=== PATIENT | female | born 1970 | race Caucasian/White ===

== ENCOUNTER 2019-07-24 04:32 | Outpatient (RCR) | payer OTHER, SELFPAY ==
[2019-06-29 14:01] LABS: Abs Immature Grans 0.05 k/cumm (0.0-0.09); Absolute Basophil Count 0.05 k/cumm (0.0-0.2); Absolute Eosinophil Count 0.16 k/cumm (0.0-0.7); Absolute Lymphocyte Count 0.98 k/cumm (1.2-3.4); Absolute Monocyte Count 0.85 k/cumm (0.11-0.7); Absolute Neutrophil Count 6.44 k/cumm (1.2-6.7); Basophils % 0.6; Eosinophils % 1.9; HCT 33.8 % (36.0-46.0); HGB 11.6 g/dL (12.0-15.5); Immature Grans % 0.6 %; Lymphocytes % 11.5; Mean Corp. HGB Concentration 34.3 g/dL (32.0-36.0); Mean Corpuscular Hemoglobin 30.6 pg (27.0-33.0); Mean Corpuscular Volume 89.2 fL (80-95); Mean Platelet Volume 10.9 fL (8.0-11.0); Neutrophils % 75.4; Platelet Count 261 x1000/uL (130-400); RBC 3.79 m/cumm (4.00-5.20); RBC Distribution Width 12.3 % (11.7-14.6); White Blood Cell Count 8.53 k/cumm (4.4-10.8)
[2019-06-29 14:24] LABS: ALT 12 U/L (14-59); AST 11 U/L (15-37); Albumin 3.1 g/dL (3.4-5.0); Alkaline Phosphatase 71 U/L (46-116); Anion Gap 8.8 mmol/L (3-11); BUN 13 mg/dL (7-18); Bilirubin, Total 0.3 mg/dL (0.2-1.0); CO2 29.2 mmol/L (21.0-32.0); CREATININE 0.69 mg/dL (0.55-1.02); Calcium 8.5 mg/dL (8.5-10.1); Chloride 101 mmol/L (98-107); Ferritin 27 ng/mL (8-252); Glucose 93 mg/dL (74-106); Magnesium 1.8 mg/dL (1.8-2.4); Potassium 3.7 mmol/L (3.5-5.1); Sodium 139 mmol/L (136-145); Total Protein 6.6 g/dL (6.4-8.2)
[2019-06-29 14:31] LABS: Iron 49 ug/dL (50-170); Total Iron Binding Capacity 208 ug/dL (250-450); Transferrin Sat 24 % (15-50)
[2019-06-30 09:57] LABS: CEA <0.5 ng/mL (See Note)
[2019-07-13 10:01] LABS: Abs Immature Grans 0.01 k/cumm (0.0-0.09); Absolute Basophil Count 0.05 k/cumm (0.0-0.2); Absolute Eosinophil Count 0.13 k/cumm (0.0-0.7); Absolute Lymphocyte Count 0.55 k/cumm (1.2-3.4); Absolute Monocyte Count 1.03 k/cumm (0.11-0.7); Absolute Neutrophil Count 4.24 k/cumm (1.2-6.7); Basophils % 0.8; Eosinophils % 2.2; HCT 37.3 % (36.0-46.0); HGB 12.7 g/dL (12.0-15.5); Immature Grans % 0.2 %; Lymphocytes % 9.2; Mean Corpuscular Hemoglobin 30.2 pg (27.0-33.0); Mean Corpuscular Volume 88.6 fL (80-95); Mean Platelet Volume 10.3 fL (8.0-11.0); Monocytes % 17.1; Neutrophils % 70.5; Platelet Count 191 x1000/uL (130-400); RBC 4.21 m/cumm (4.00-5.20); White Blood Cell Count 6.01 k/cumm (4.4-10.8)
[2019-07-13 10:09] LABS: ALT 23 U/L (14-59); AST 17 U/L (15-37); Albumin 3.4 g/dL (3.4-5.0); Alkaline Phosphatase 62 U/L (46-116); Anion Gap 6.2 mmol/L (3-11); BUN 10 mg/dL (7-18); Bilirubin, Total 0.3 mg/dL (0.2-1.0); CO2 30.8 mmol/L (21.0-32.0); CREATININE 0.72 mg/dL (0.55-1.02); Calcium 8.6 mg/dL (8.5-10.1); Chloride 102 mmol/L (98-107); Glucose 74 mg/dL (74-106); Potassium 4.1 mmol/L (3.5-5.1); Sodium 139 mmol/L (136-145); Total Protein 6.9 g/dL (6.4-8.2)
[2019-07-14 10:26] LABS: CEA <0.5 ng/mL (See Note)
[2019-07-24 09:10] LABS: Abs Immature Grans 0.01 k/cumm (0.0-0.09); Absolute Basophil Count 0.03 k/cumm (0.0-0.2); Absolute Eosinophil Count 0.18 k/cumm (0.0-0.7); Absolute Lymphocyte Count 0.38 k/cumm (1.2-3.4); Absolute Monocyte Count 0.87 k/cumm (0.11-0.7); Absolute Neutrophil Count 3.84 k/cumm (1.2-6.7); Basophils % 0.6; Eosinophils % 3.4; HGB 12.5 g/dL (12.0-15.5); Immature Grans % 0.2 %; Lymphocytes % 7.2; Mean Corp. HGB Concentration 34.7 g/dL (32.0-36.0); Mean Corpuscular Hemoglobin 30.6 pg (27.0-33.0); Mean Corpuscular Volume 88.2 fL (80-95); Monocytes % 16.4; Neutrophils % 72.2; Platelet Count 165 x1000/uL (130-400); RBC 4.08 m/cumm (4.00-5.20); RBC Distribution Width 12.9 % (11.7-14.6); White Blood Cell Count 5.31 k/cumm (4.4-10.8)
[2019-07-24 09:21] LABS: ALT 29 U/L (14-59); AST 25 U/L (15-37); Albumin 3.3 g/dL (3.4-5.0); Alkaline Phosphatase 54 U/L (46-116); Anion Gap 5.1 mmol/L (3-11); BUN 12 mg/dL (7-18); Bilirubin, Total 0.3 mg/dL (0.2-1.0); CO2 29.9 mmol/L (21.0-32.0); CREATININE 0.83 mg/dL (0.55-1.02); Calcium 8.6 mg/dL (8.5-10.1); Chloride 104 mmol/L (98-107); Glucose 116 mg/dL (74-106); Potassium 3.6 mmol/L (3.5-5.1); Sodium 139 mmol/L (136-145); Total Protein 6.6 g/dL (6.4-8.2)
[2019-07-24] MEDS: Normal Saline Flush 10 ML SYR IVP (09:40)
== END 2019-07-25 23:59 | disposition home or self-care (01) ==
LOC: INF 04:32
PROVIDERS: Internal Medicine Medical Oncology; PCP Family Medicine; Visit Provider Internal Medicine Hematology & Oncology
DX: C15.5 Malignant neoplasm of lower third of esophagus (principal); Z45.2 Encounter for adjustment and management of vascular access device
CPT/HCPCS: 36569; 36592; 80053; 82378; 82728; 83540; 83550; 83735; 85025

== ENCOUNTER 2019-08-14 03:12 | Outpatient (RCR) | payer OTHER, SELFPAY | END 2019-08-25 23:59 | disposition home or self-care (01) | LOC: INF 03:12 | PROVIDERS: PCP Family Medicine; Visit Provider Internal Medicine Hematology & Oncology | DX: R69 Illness, unspecified (principal) ==

== ENCOUNTER 2023-01-02 11:07 | Outpatient (CLI) | payer MEDICARE, SELFPAY ==
--- NOTE | 2023-01-02 06:00 | DI.RAD_ITS ---
Exam(s) XR PAIN CLINIC THORACIC SP 2V EXAM: XR PAIN CLINIC THORACIC SP 2V CLINICAL HISTORY: Dx: Intercostal Neuralgia. TECHNIQUE: Fluoroscopy was provided for the referring physician for guidance with performing pain cl inic injection procedure. COMPARISON: No exams were available for comparison FINDINGS: Please see procedure note for details. Fluoro time: 71.6 seconds RADIATION DOSE DELIVERED: Ka,r=5.54 mGy
[2023-01-02 11:21] VITALS: BP 105/75; PULSE 89; RESP 20; TEMP 36.6; O2SAT 98
[2023-01-02] MEDS: methylPREDNISolone ACETATE 40 MG/ML VIAL IJ (11:45)
[2023-01-02] MEDS: Omnipaque 240 MG/ML 50 ML BTL IJ (11:45)
[2023-01-02] MEDS: Bupivacaine 0.5% Pres-Free 10 ML VIAL IJ (11:54)
[2023-01-02 12:01] VITALS: BP 95/71; PULSE 87; RESP 15; O2SAT 96
--- NOTE | 2023-01-03 16:28 | PDOC.PAIN_ITS ---
Date of service: 01/02/23 Time of Service: 12:00 Pain Managment Procedure Note Procedure Note Procedure Note: PROCEDURE NOTE RIGHT 6th INTERCOSTAL NERVE BLOCK Chief Complaint: Right upper back and chest pain. Date of Service: January 02, 2023 Patient: VICKI CHAPPELL Provider: Delmar Linda DO, MPH VICKI CHAPPELL has been [facility] for an intercostal nerve block. Pre-operative diagnosis: Intercostal neuralgia Post-operative diagnosis: Same Pre-Procedure Pain: VAS= 8/10 Comments: I previously evaluated the patient in our clinic and their symptoms remain the same as they were at that time. She had lung surgery and the surgeon entered between the 6th and 7th ribs on the right. She has a large and painful scar in this area. She did have a right 6th, 7th and 8th intercostal nerve blocks at in the past with [facility]. I did spend significant time determining the exact intercostal nerve that was likely irritated during her open chest surgery. This will likely be the right 6th intercostal nerve. VICKI was interviewed and the medical record reviewed. There were no medical, pharmacologic, radiographic or other structural contraindications to attempting a fluoroscopically-guided intercostal nerve block. The risks, benefits, and potential side effects were reviewed with the patient. Risks include, but are not limited to, pneumothorax, infection, bleeding, nerve injury, possible increase in symptoms over the ensuing 24 to 48 hours, paralysis, and . The patient appeared to understand, questions were answered to the patient?s satisfaction and the patient agreed to proceed. Once I obtained informed verbal consent, the printed consent form was signed by the patient and myself. A standard time-out procedure was performed. VICKI was placed in the prone position on the fluoroscopy table and automated blood pressure cuff, three lead EKG, and pulse oximeter were applied. The skin entry point for entering/approaching the area for the right 6th intercostal nerve block was marked. Following thorough chlorhexadine preparation of the skin and draping, 2 ml of 1% lidocaine was infiltrated into the skin over the entry point and subcutaneous tissues. Under fluoroscopic guidance, using a 1.5 25G skin needle was advanced to the 6th rib and walked inferiorly off the rib. The needle was advanced under the rib. Oblique and AP views were rechecked. Under AP and lateral views, 1 ml of Omnipaque-240 was injected while visualized with fluoroscopy. There was no evidence of intravascular or intrathecal uptake, the nerve sheath was delineated. Next 2 cc of 2% Lidocaine was injected, followed by 1 ml of preservative-free Depomedrol (40 mg/ml) was injected after negative aspiration. This was followed by 8 ml of preservative-free 0.5 % Bupivacaine. (49 mls of Omnipaque-240 was wasted) There was no unusual discomfort expressed by VICKI. The needle was withdrawn without difficulty. VICKI was observed and was without hemodynamic, neurologic, or allergic reactions.? Fluoroscopic images were digitally archived. Once I was sure that we had blocked the symptomatic intercostal nerve, the sterile field was taken down. VICKI's vital signs were stable throughout the procedure and were as recorded in the docflowsheet by the nursing staff.? If given, dosages of intravenous drugs for anxiolysis and analgesia were documented in MAR. Follow up plans and appointments were discussed with VICKI. Post procedure instruction was given as documented in nursing records and having met discharge criteria VICKI was [facility] the [facility]. COMMENTS: Post-procedure pain: VAS= 0/10. VICKI to contact [facility] as needed. If at least 50% improvement in pain and/or function for at least 3 months is achieved, this procedure can be repeated. I personally performed this entire procedure. DELMAR LINDA DO, MPH ABPMR-subspecialty board certification in Pain Medicine [facility]
== END 2023-01-02 11:08 | disposition home or self-care (01) ==
LOC: PC 11:07
PROVIDERS: PCP Family Medicine; Visit Provider Preventive Medicine Occupational Medicine
DX: R07.82 Intercostal pain; G58.0 Intercostal neuropathy
CPT/HCPCS: 64420; 64421; 72070; J1030; Q9967

== ENCOUNTER 2023-12-12 11:02 | Outpatient (CLI) | payer MEDICARE, SELFPAY ==
[2023-12-12 11:17] VITALS: BP 110/79; PULSE 98; RESP 20; TEMP 36.8; O2SAT 99
[2023-12-12 11:32] VITALS: PULSE 96; RESP 16; O2SAT 97
[2023-12-12 11:40] VITALS: PULSE 92; RESP 17; O2SAT 96
[2023-12-12 11:44] VITALS: BP 109/89; PULSE 90; PULSE 97; RESP 15; O2SAT 97
--- NOTE | 2023-12-12 11:44 | DI.RAD_ITS ---
Exam(s) XR PAIN CLINIC THORACIC SP 2V EXAM: XR PAIN CLINIC THORACIC SP 2V CLINICAL HISTORY: DX: Intercostal Neuralgia. TECHNIQUE: Fluoroscopy was provided for the referring physician for guidance with performing pain cl inic injection procedure. COMPARISON: No exams were available for comparison FINDINGS: Please see procedure note for details. Fluoro time: 35.8 seconds RADIATION DOSE DELIVERED: Ka,r=2.74 mGy
[2023-12-12] MEDS: Nerve Block Tray 1 EACH MC (11:51)
[2023-12-12] MEDS: Omnipaque 240 MG/ML 50 ML BTL IJ (11:51)
[2023-12-12] MEDS: methylPREDNISolone ACETATE 40 MG/ML VIAL IJ (11:52)
[2023-12-12] MEDS: Lidocaine 2% Pres-Free 5 ML VIAL IJ (11:52)
--- NOTE | 2023-12-12 11:52 | PDOC.PAIN_ITS ---
Date of service: 12/12/23 Time of Service: 11:52 Pain Managment Procedure Note Procedure Note Procedure Note: Procedure Note Right 6th Intercostal Nerve Block Date of Service: December 12, 2023 Patient:VICKI CHENG? Provider:? Delmar Linda DO, MPH VICKI has been referred to the [facility] for a right 6th Intercostal nerve block.? Pre-operative diagnosis: Intercostal neuralgia Post-operative diagnosis: Same Pre-procedure pain: VAS= 9/10 Comments: She has had this procedure in the past with excellent relief. VICKI was interviewed and the medical record was reviewed.? There were no medical, pharmacologic, radiographic or other structural contraindications to attempting fluoroscopically guided a right 6th intercostal nerve block.? Risks, potential side effects, indications, and potential benefits of the procedure were reviewed with VICKI.? Questions and concerns were addressed.? After it was clear that the patient was fully informed about the procedure, the printed consent form was signed by the patient and myself.? VICKI was placed in the prone position on the fluoroscopy table and automated blood pressure cuff as well as pulse oximeter was applied. A standard time-out procedure was performed. The skin entry point for entering over the right 6th rib approximately 5 cm lateral to midline was identified under fluoroscopy and marked.? The skin entry point was thoroughly cleaned with Chlorhexadine preparation and the skin was draped.? Next a mixture of 2 mls of 1% lidocaine was infiltrated into the area of the planned skin entry point and underlying subcutaneous tissues.? Next this needle was advanced under fluoroscopic guidance to the rib and then the needle was walked down and below the rib with much care.? Upon correct needle placement, there were no paresthesia or return of blood or CSF through the needle. Next 2 mls of preservative-free Omnipaque 240 was injected with clear neurogram spread in the A/P view. Next, 4 cc of 0.5% Bupivacaine followied by 1 cc of Depomedrol (40mg/cc) and then 2 cc of 1% Lidocaine were injected. No unusual discomfort was expressed by VICKI. The needle was withdrawn without difficulty. (48 mls of Omnipaque was wasted) VICKI was observed and was without hemodynamic, neurologic, or allergic reactions.? Fluoroscopic images were digitally archived. VICKI's vital signs were stable throughout the procedure and were as recorded in the doc flowsheet by the nursing staff.? If given, dosages of intravenous drugs for anxiolysis and analgesia were documented in MAR. Follow up plans and appointments were discussed with VICKI.? Post procedure instruction was given as documented in nursing documentation and having met discharge criteria, [facility]. ? COMMENTS: No apparent complications. Post-procedure pain: VAS= 0/10. VICKI to contact [facility] as needed. If at least 50% improvement in pain and/or function for at least 3 months is achieved, this procedure can be repeated. I personally completed the entire procedure. DELMAR LINDA DO, MPH ABPMR-subspecialty board certification in Pain Medicine [facility]
[2023-12-12] MEDS: Bupivacaine 0.5% Pres-Free 10 ML VIAL IJ (11:53)
== END 2023-12-12 11:03 | disposition home or self-care (01) ==
LOC: PC 11:03
PROVIDERS: PCP Physician Assistant Medical; Visit Provider Preventive Medicine Occupational Medicine
DX: G58.0 Intercostal neuropathy (principal); R07.82 Intercostal pain
CPT/HCPCS: 64420; 72070; J0665; J1010; Q9967